=== PATIENT | male | born 1980 | race Caucasian/White ===

== ENCOUNTER 2019-05-22 11:35 | Emergency (ER) | payer SELFPAY ==
--- NOTE | 2019-05-22 11:47 | XR_ITS ---
WS: [id number] Right shoulder, 2 views, 05/22/2019 Clinical Data: PAIN Comparison: None. Findings: No fractures or dislocations are seen. The AC joint is normal. The adjacent right clavicle, right sca pula and ribs are normal. The soft tissues are unremarkable. XR/XR shoulder RT min 2V* [id number] Impression: Negative right shoulder.
[2019-05-22 12:59] VITALS: BP 144/81; PULSE 85; RESP 18; TEMP 36.4; O2SAT 98; BMI 27.5
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
--- NOTE | 2019-05-22 13:38 | DCPLANNER ---
consulting technical manager was asked to schedule a follow up appointment for patient with ortho. consulting technical manager called the ortho clinic, spoke with Cherie, gave clinic patients information. consulting technical manager was told that patients information would be printed and reviewed. Clinic will call classification case manager and patient with appointment information.
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
[2019-05-22 13:53] VITALS: BP 116/61; RESP 18
--- NOTE | 2019-05-23 11:28 | DCPLANNER ---
Codi from [facility] called correctional casework specialist stating that patients information was reviewed, and patient can follow up with primary care physician. Clinic was unable to reach patient to tell him this. senior manager was unable to reach patient at this time to inform him to follow up with primary care.
== END 2019-05-22 13:54 | disposition home or self-care (01) ==
PROVIDERS: Emergency Provider Nurse Practitioner Family
DX: M25.811 Other specified joint disorders, right shoulder (principal); F17.210 Nicotine dependence, cigarettes, uncomplicated
CPT/HCPCS: 73030; 99281; 99282

== ENCOUNTER 2020-03-18 13:10 | Emergency (ER) | payer SELFPAY ==
[2020-03-18 13:15] VITALS: BP 120/76; PULSE 85; RESP 20; TEMP 36.4; O2SAT 98; BMI 27.5
--- NOTE | 2020-03-18 13:29 | CT_ITS ---
WS: [id number] CT CERVICAL TRAUMA TECHNIQUE: Noncontrast CT of the cervical spine with coronal and sagittal reformatted images. CLINICAL INFORMATION: c spine COMPARISON: None. DLP: 700.[address] scans at [facility] use at least one of these dose optimization techniques: automat ed exposure control; mA and/or kV adjustment per patient size (includes targeted exams where dose is matched to clinical indication); or iterative reconstruction. FINDINGS: Straightening of the normal cervical lordosis. Normal craniocervical junction. Normal C1-C2 articulat ion. Dens is normal in appearance. Normal occipital condyles. No high-grade spinal canal narrowing. N ormal C1 ring. No evidence of acute fracture or dislocation. Normal prevertebral soft tissues. Mastoids air cells are well aerated. CT/CT cervical spin wo con* [id number] IMPRESSION: No evidence of acute fracture or dislocation.
--- NOTE | 2020-03-18 13:32 | XR_ITS ---
WS: [id number] Left ankle, 3 views, 03/18/2020 Clinical Data: injury Comparison: None. Findings: No fractures or dislocations are seen. The ankle mortise is normal. The talus and calcaneus are unrem arkable. No soft tissue swelling over the medial or lateral malleolus is seen. XR/XR ankle LT min 3V* [id number] Impression: Negative left ankle.
--- NOTE | 2020-03-18 13:32 | XR_ITS ---
WS: [id number] Right wrist, 3 views, 03/18/2020 Clinical Data: injury Comparison: None. Findings: No fractures or dislocations are seen. The carpal bones are intact. There is no soft tissue swelling. The distal radius and ulna are not remarkable. XR/XR wrist RT min 3V* [id number] Impression: Negative right wrist.
--- NOTE | 2020-03-18 13:32 | XR_ITS ---
WS: [id number] Right elbow, 3 views, 03/18/2020 Clinical Data: injury Comparison: None. Findings: No fractures or dislocations are seen. The radial head is normal. The soft tissues are unremarkable. XR/XR elbow RT min 3V* [id number] Impression: Negative right elbow.
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
[2020-03-18] MEDS: HYDROcodone-acetaminophen 7.5-325 mg Tablet 1 TAB PO (14:08)
[2020-03-18 15:32] VITALS: RESP 18
== END 2020-03-18 15:30 | disposition home or self-care (01) ==
PROVIDERS: Emergency Provider Emergency Medicine
DX: Z04.1 Encounter for examination and observation following transport accident (principal); S13.9XXA Sprain of joints and ligaments of unspecified parts of neck, initial encounter; V20.4XXA Motorcycle driver injured in collision with pedestrian or animal in traffic accident, initial encounter; F17.210 Nicotine dependence, cigarettes, uncomplicated
CPT/HCPCS: 12345; 72125; 73080; 73110; 73610; 99281; 99283

== ENCOUNTER → 2021-04-25 15:46 | Outpatient (BNVA) | payer SELFPAY | PROVIDERS: Visit Provider Nurse Practitioner Family | DX: M25.561 Pain in right knee (principal); M25.562 Pain in left knee; M79.671 Pain in right foot; R60.9 Edema, unspecified; G62.9 Polyneuropathy, unspecified; M79.672 Pain in left foot; M25.572 Pain in left ankle and joints of left foot; Z79.1 Long term (current) use of non-steroidal anti-inflammatories (NSAID); M25.571 Pain in right ankle and joints of right foot; F17.200 Nicotine dependence, unspecified, uncomplicated | CPT/HCPCS: 80053 ==

== ENCOUNTER → 2021-04-26 11:38 | Outpatient (BNVA) | payer SELFPAY | PROVIDERS: Visit Provider Nurse Practitioner Family | DX: F17.200 Nicotine dependence, unspecified, uncomplicated (principal); G62.9 Polyneuropathy, unspecified; M25.561 Pain in right knee; M25.562 Pain in left knee; M25.571 Pain in right ankle and joints of right foot; M25.572 Pain in left ankle and joints of left foot; R60.9 Edema, unspecified; Z79.1 Long term (current) use of non-steroidal anti-inflammatories (NSAID); M79.672 Pain in left foot; M79.671 Pain in right foot; M62.838 Other muscle spasm | CPT/HCPCS: 85651; 86140; 86200; 86431; 86705; 86706; 86709; 86803; 87340; 87522 ==

== ENCOUNTER 2021-07-24 04:20 | Emergency (ER) | payer SELFPAY ==
--- NOTE | 2021-07-24 04:24 | XRR_ITS ---
PROCEDURE INFORMATION: Exam: XR Chest Exam date and time: 07/24/2021 4:55 AM Age: 40 years old Clinical indication: Dyspnea; Additional info: HTN TECHNIQUE: Imaging protocol: XR of the chest. Views: 1 view. Total images: 1 COMPARISON: CT cervical spin wo con* [id number] 03/18/2020 2:31 PM FINDINGS: Lungs: Unremarkable. No consolidation. Pleural spaces: Unremarkable. No pleural effusion. No pneumothorax. Heart/Mediastinum: Unremarkable. No cardiomegaly. Bones/joints: Unremarkable. XR/XR chest 1V portable [id number] IMPRESSION: No acute findings.
--- NOTE | 2021-07-24 04:24 | USR_ITS ---
PROCEDURE INFORMATION: Exam: US Duplex Right Upper Extremity Arteries Exam date and time: 07/24/2021 4:38 AM Age: 40 years old Clinical indication: Pain; Arm, lower; Right; Additional info: Hand swelling TECHNIQUE: Imaging protocol: Right Real-time ultrasound scan of the arteries of the right upper extremity with 2-D asutin scale, color Doppler flow and spectral waveform analysis. Total images: 39 COMPARISON: CT cervical spin wo con* [id number] 03/18/2020 2:31 PM FINDINGS: Right subclavian artery: No occlusion or significant stenosis. Right axillary artery: No occlusion or significant stenosis. Right brachial artery: No occlusion or significant stenosis. Right radial artery: No occlusion or significant stenosis. Right ulnar artery: No occlusion or significant stenosis. US/[place] [id number] IMPRESSION: No acute findings.
[2021-07-24 04:27] VITALS: BP 126/82; PULSE 120; RESP 18; TEMP 36.8; O2SAT 94; BMI 22.5
--- NOTE | 2021-07-24 04:27 | XRR_ITS ---
PROCEDURE INFORMATION: Exam: XR Right Hand Exam date and time: 07/24/2021 4:55 AM Age: 40 years old Clinical indication: Pain; Swelling; Hand; Right; Patient HX: PT admits; Additional info: Hand pain TECHNIQUE: Imaging protocol: XR Right hand. Views: 3 or more views. Total images: 3 COMPARISON: CR XR wrist RT min 3V* [id number] 03/18/2020 1:45 PM FINDINGS: Bones/joints: No acute fracture nor subluxation. No osseous erosion nor periosteal reaction. Soft tissues: Quadrangular metallic density projecting in the soft tissues lateral to proximal metadiaphyseal area of the proximal phalanx of the 2nd digit felt to represent a foreign body. Dorsal soft tissue swelling is present. XR/XR hand RT min 3V* [id number] IMPRESSION: 1. Quadrangular metallic density projecting in the soft tissues lateral to proximal metadiaphyseal area of the proximal phalanx of the 2nd digit felt to represent a foreign body. 2. Dorsal soft tissue swelling is present. 3. No acute osseous pathology.
--- NOTE | 2021-07-24 04:29 | ED_ITS ---
HPI - General Adult General: Chief complaint: General Medical Stated complaint: SWOLLEN HAND/FEET Time Seen by Provider: 07/24/21 04:24 Source: patient and EMS Mode of arrival: EMS Limitations: no limitations History of Present Illness: 40-year-old male who has a history of methamphetamine abuse. He states been having extreme pain in his right hand with swelling to his right hand. He states has been going on throughout the day he does have some open sores to his forearm and hand hand is extremely swollen and mottled in appearance. He states he is unable to move his fingers. He states the pain is currently 9 out of 10. He denies any worst improving factors. Associated symptoms: Deny chest pain, dyspnea, nausea or vomiting Review of Systems Const: Denies: fever(s), chills, body aches or change in appetite Eyes: Denies: blurry vision or eye discomfort ENMT: Denies: throat pain or dental pain Card: Denies: chest pain Resp: Denies: dyspnea GI: Denies: abdominal pain, nausea, vomiting or diarrhea : Denies: dysuria Musc: Reports: extremity pain and extremity swelling Skin/Breast: Reports: erythema Neuro: Reports: numbness in extremities Psych: Denies: depression Kayden/Lymph: Denies: easy bruising All/Imm: Denies: urticaria PFSH ED PFSH: Medical History Edema Social History Smoking and tobacco status: current every day smoker Physical Exam Const: COMMON NORMALS: patient oriented x3 GENERAL APPEARANCE: in distress, disheveled and ill appearing HENMT: COMMON NORMALS: normocephalic and atraumatic HEAD & SCALP: normocephalic and atraumatic Eye: COMMON NORMALS: Equal, round and reactive pupils present and EOMs intact bilaterally PUPIL: Yes Equal, round and reactive pupils present Neck/C-Spine: COMMON NORMALS: full ROM and supple Chest: COMMONS NORMALS: normal inspection of the chest and normal palpation of entire chest wall Resp: COMMON NORMALS: normal respiratory effort, No retractions, No use of accessory muscles and clear to auscultation bilaterally AUSCULTATION: clear to auscultation bilaterally Cardio: COMMON NORMALS: regular rhythm and No murmurs present (Cardio) RATE: tachycardic RHYTHM: regular rhythm GI: COMMON NORMALS: Normal to inspection, nondistended, normoactive bowel sounds present, Soft to palpation, non-tender and no masses PALPATION: Yes Soft to palpation Extremity: NARRATIVE EXTREMITY EXAM: Extreme swelling to right hand his right hand is mottled blue and cool to the touch he has difficult time moving that hand. Some swelling into the forearm sores all over his body including his right forearm and hand Neuro: COMMON NORMALS: patient oriented x3, moves all extremities and no focal motor deficits Psych: COMMON NORMALS: mental status grossly normal, Normal thought process present and cooperative THOUGHT PROCESS: Normal thought process present Skin: COMMON NORMALS: no rashes or lesions noted and no wounds GENERAL SKIN EXAM: no rashes or lesions noted Course Vital Signs: Vital signs: Vital Signs Temperature 98.3 F 07/24/21 04:27 Pulse Rate 120 H 07/24/21 04:27 Respiratory Rate 16 07/24/21 04:42 Blood Pressure 126/82 07/24/21 04:27 Pulse Oximetry 94 07/24/21 04:27 [facility] - General Adult Medical Decision Making Patient presents with extreme pain to his right hand. On exam it is quite swollen tight he is having difficulty moving his fingers. I am concerned that he has compartment syndrome of that right hand from IV drug abuse. Patient started on IV antibiotics I did speak to ER physician at [facility] in [place] and will transfer there for higher level of care for hand surgery. Lab Data : 07/24/21 03:24 07/24/21 03:24 Critical Care Time Critical Care Time: Critical Care Time: Yes Total Critical Care Time: 40 Attestation: The high probability of a clinically significant, sudden or life threatening deterioration of the patient's MSK system(s) required my full and direct attention, intervention and personal management. The critical care time is as shown. This time is in addition to time spent performing any reported procedures but includes the following: [x] Data and vital sign review and interpretation [x] Patient assessment, examination and intervention [x] Documentation [x] Medication orders and management Discharge Plan Discharge Patient Disposition: Xfer Short-Term Hosp Clinical Impression: Compartment syndrome of right hand, Methamphetamine abuse Condition: Stable Coding Level of Care Code ED Fish Bin Tender for Kathyg Fwd Exam Comprehensive
[2021-07-24 04:40] LABS: Basophils # 0.1 10^3/uL (0.0-0.1); Hematocrit 30.7 % (42.0-52.0); Hemoglobin 10.1 g/dL (11.7-16.6); Lymphocytes # 0.2 10^3/uL (0.8-4.8); Lymphocytes % 3.1 %; Mean Corpuscular HGB Conc 32.9 g/dL (30.0-36.0); Mean Corpuscular Hemoglobin 26.8 pg (28.0-34.0); Mean Corpuscular Volume 81.4 fl (80-94); Mean Platelet Volume 10.3 fL (7.4-10.4); Monocytes # 0.1 10^3/uL (0.2-0.9); Monocytes % 2.1 %; Neutrophils # 5.79 10^3/uL (1.8-7.7); Nucleated Red Blood Cells % 0 %; Red Blood Count 3.77 10^6/uL (4.1-5.3); Red Cell Distribution Width 16.4 % (12.1-15.1); White Blood Count 6.2 10^3/uL (4.0-10.0)
[2021-07-24 04:42] VITALS: RESP 16
[2021-07-24] MEDS: ondansetron 2 mg/ML SDV 2 mL 4 MG IVP (04:42)
[2021-07-24] MEDS: vancomycin 1,000 MG in sodium chloride 0.9% 250 ML 250 MG IV (04:42)
[2021-07-24] MEDS: HYDROmorphone 1 mg/mL INJ 1 mL IVP (04:42)
[2021-07-24 05:10] VITALS: BP 130/78; PULSE 118; RESP 18; TEMP 36.8; O2SAT 94
[2021-07-24 05:10] LABS: Alanine Aminotransferase 19 U/L (0-41); Albumin Level 2.2 g/dL (3.5-5.2); Alkaline Phosphatase 131 IU/L (40-130); Anion Gap 24.8 (5-19); Aspartate Amino Transferase 41 U/L (0-40); Blood Urea Nitrogen 30 mg/dL (6-20); Calcium 8.9 mg/dL (8.5-10.5); Carbon Dioxide 16 mmol/L (22-29); Chloride 88 mmol/L (98-107); Globulin 3.7 g/dL (1.3-4.6); Glomerular Filtration Rate 55.8 mL/min (90-130); Glucose 88 mg/dL (65-115); NT Pro B Type Natriuretic Pept 5409 pg/mL (0-125); Osmolality Calculated 268 mOsm/kg (285-295); Sodium 126 mmol/L (136-145); Total Bilirubin 2.1 mg/dL (0.15-1.2); Total Protein 5.9 g/dL (6.6-8.7)
[2021-07-24 05:24] LABS: Platelet Count 26 10^3/cmm (130-400); Potassium 2.8 mmol/L (3.5-5.1); Slide Review Slide Review Perform
[2021-07-24 05:24] LABS: Lactate (Lactic Acid level) 7.4 mmol/L (0.5-2.2)
[2021-07-24 05:36] LABS: Erythrocyte Sedimentation Rate 48 mm/hr (0-10)
--- NOTE | 2021-07-24 05:43 | ECG_ITS ---
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 Measurements Intervals [place] Rate: 130 P: 47 DE: 112 QRS: 46 QRSD: 104 T: 74 QT: 313 QTc: 460 Interpretive Statements SINUS TACHYCARDIA WITH SHORT DE INTERVAL NONSPECIFIC T-WAVE ABNORMALITY ABNORMAL RHYTHM ECG INTERPRETATION BASED ON A DEFAULT AGE OF 39 YEARS No previous ECG available for comparison Electronically Signed On 07-24-2021 21:59:30 CDT by Sung Aguilar M.D. [email or web address]
[2021-07-24 05:44] LABS: Amphetamines Screen Urine Positive (Negative); Barbiturates Screen Urine Negative (Negative); Benzodiazepines Screen Urine Negative (Negative); Cocaine Screen Urine Negative (Negative); Opiate Screen Urine Positive (Negative); PCP Screen Urine Negative (Negative); THC Screen Urine Negative (Negative)
[2021-07-24 05:50] LABS: C Reactive Protein 242.1 mg/L (0.0-4.9)
[2021-07-24 05:57] VITALS: BP 130/78; PULSE 118; RESP 18; TEMP 36.8; O2SAT 94
[2021-07-24 06:11] VITALS: RESP 20
[2021-07-24] MEDS: HYDROmorphone 1 mg/mL INJ 1 mL 0.5 MG IVP (06:11)
[2021-07-24 06:15] LABS: Troponin(5th) Baseline 15 ng/L (0-15)
[2021-07-24 06:25] LABS: Troponin 5 2HR 15.24 ng/L (0-15)
[2021-07-24 06:32] LABS: Troponin 5 2HR Delta 0.24 ABS# (0-10)
--- NOTE | 2021-07-28 08:40 | PC.NURSE ---
NOTIFIED DR. SIMMONS OF BLOOD CULTURES OF GRAM POSITIVE COCCI WITH CHAINS. HE VERBALIZED UNDERSTANDING AND STATED NO FURTHER ORDERS ARE NEEDED.
[2021-07-28 11:15] LABS: Bacillus cereus group Not Detected (NOT DETECT); Bacillus subtillis group Not Detected (NOT DETECT); Corynebacterium Not Detected (NOT DETECT); Cutibacterium acnes (P.acnes) Not Detected (NOT DETECT); Enterococcus Not Detected (NOT DETECT); Enterococcus faecalis Not Detected (NOT DETECT); Enterococcus faecium Not Detected (NOT DETECT); Lactobacillus species Not Detected (NOT DETECT); Listeria Not Detected (NOT DETECT); Listeria monocytogenes Not Detected (NOT DETECT); Micrococcus Not Detected (NOT DETECT); Pan Candida Not Detected (NOT DETECT); Pan Gram-Negative Not Detected (NOT DETECT); Staphylococcus epidermidis Not Detected (NOT DETECT); Staphylococcus lugdunensis Not Detected (NOT DETECT); Staphylococcus species Not Detected (NOT DETECT); Streptococcus agalactiae Not Detected (NOT DETECT); Streptococcus anginosus group Not Detected (NOT DETECT); Streptococcus pneumoniae Not Detected (NOT DETECT); Streptococcus pyogenes Detected (NOT DETECT); Streptococcus species Detected (NOT DETECT)
== END 2021-07-24 06:11 | disposition short-term general hospital (02) ==
PROVIDERS: Emergency Provider Emergency Medicine
DX: T79.A11A Traumatic compartment syndrome of right upper extremity, initial encounter (principal); X58.XXXA Exposure to other specified factors, initial encounter; F15.10 Other stimulant abuse, uncomplicated; F17.200 Nicotine dependence, unspecified, uncomplicated
CPT/HCPCS: 71045; 73130; 80053; 80306; 83605; 83880; 84484; 85025; 85651; 86140; 87040; 87077; 87150; 87186; 87205; 93005; 93931; 96365; 96375; 96376; 99285; J1170; J2405; J3370; J7050